=== PATIENT | female | born 1940 | race Caucasian/White ===

== ENCOUNTER 2020-07-10 12:22 | Emergency (ER) | payer MEDICARE, OTHER ==
[~2020-07-10] VITALS: Ht 162.6 cm; Wt 86.2 kg
[2020-07-10] MEDS ORDERED: SYNTHROID88 MCG PO (12:36)
[2020-07-10] MEDS ORDERED: BAYER CHEWABLE81 MG PO (12:36)
[2020-07-10] MEDS ORDERED: TOPROL XL50 MG PO (12:37)
[2020-07-10] MEDS ORDERED: ISOSORBIDE MONO60 MG PO (12:37)
[2020-07-10] MEDS ORDERED: AMLODIPINE BESYL5 MG PO (12:37)
[2020-07-10] MEDS ORDERED: RANOLAZINE ER500 MG PO (12:37)
[2020-07-10] MEDS ORDERED: LOSARTAN POTASS50 MG PO (12:38)
[2020-07-10] MEDS ORDERED: ESTRACE0.5 MG PO (12:38)
[2020-07-10] MEDS ORDERED: LIPITOR80 MG GT (12:38)
[2020-07-10] MEDS ORDERED: VALIUM2 MG PO (15:26)
--- NOTE | 2020-07-10 17:02 | EKG ---
[facility] [address] [facility] [place] [address] Signed Normal sinus rhythm Left axis deviation Right bundle branch block T wave abnormality, consider inferolateral ischemia Abnormal ECG No previous ECGs available Confirmed by GLADYS GUAMAN MD ([id number]) on 07/10/2020 5:02:07 PM Electronically Signed By: GLADYS GUAMAN MD 07/10/20 170 PATIENT NAME: BRENNANROSA RAE Electrocardiogram DATE OF : 38 PHYSICIAN: GLADYS GUAMAN MD REPORT #: [id number] REPORT IS CONFIDENTIAL AND NOT TO BE RELEASED WITHOUT AUTHORIZATION
== END 2020-07-10 16:59 | disposition home or self-care (01) ==
LOC: ED 12:22
DX: R42 Dizziness and giddiness (principal); Z79.899 Other long term (current) drug therapy; Z79.82 Long term (current) use of aspirin
CPT/HCPCS: 70450; 80053; 83735; 84484; 85025; 93005; 93010; 96361; 96374; 96375; 96376; 99284-25; J0780; J1100; J2405; J3360; J7030